=== PATIENT | female | born 1930 | race Caucasian/White ===

== ENCOUNTER 2018-03-29 18:51 | Day surgery (SDC) | payer MEDICARE ==
[2018-03-30 00:47] VITALS: BP 132/69; TEMP 98
== END 2018-03-30 00:27 ==
LOC: SDC/OP 18:51 → T4-A 18:56 → SDC/OP 03-30 00:27
PROVIDERS: ATTEND Surgery
PROC: 30233N1 Transfusion of Nonautologous Red Blood Cells into Peripheral Vein, Percutaneous Approach (ICD-10-PCS; principal; 2018-03-29)
DX: D64.9 Anemia, unspecified (principal)
CPT/HCPCS: 36430; 86850; 86900; 86901; 86920; P9016; 36415; J1642